=== PATIENT | female | born 1995 | race Caucasian/White ===

== ENCOUNTER → 2023-04-19 | Outpatient (CLI) | payer OTHER | LOC: M RAD 09:33 | PROVIDERS: ATTEND Midwife | DX: Z34.80 Encounter for supervision of other normal pregnancy, unspecified trimester (principal) ==

== ENCOUNTER 2023-09-06 04:29 | Inpatient (IN) | payer OTHER ==
[2023-09-06] VITALS (20 sets, daily range): BP systolic 110–175; BP diastolic 61–97; TEMP 97.8; O2SAT 97–100
[2023-09-06] MEDS ORDERED: MORPHINE 4 MG/ML 1ML VIAL As Ordered ONE (04:40)
[2023-09-06] MEDS: MORPHINE 4 MG/ML 1ML VIAL IV ONE (04:44)
[2023-09-06] MEDS ORDERED: CARBOPROST TROMETHAMINE 250 MCG/ML AMP IM PRN (05:15)
[2023-09-06] MEDS ORDERED: OXYTOCIN INJ 10UNITS/ML 1ML VIAL IM PRN (05:15)
[2023-09-06] MEDS: OXYTOCIN DRIP 30 UNITS in IV 1 EA IV PRN (05:23)
[2023-09-06] MEDS: METHYLERGONOVINE MALEATE 0.2MG/ML 1ML VIAL IM PRN (05:23)
[2023-09-06] MEDS: TRANEXAMIC ACID INJection 1,000 MG in NS 100 ML IV PRN (05:23)
[2023-09-06] MEDS ORDERED: OMEP40CA4 PO (05:29)
[2023-09-06] MEDS ORDERED: HOME MED LIST COMPLETE! XX SCH (05:30)
[2023-09-06 05:34] LABS: HEMOGLOBIN 10.3 g/dl (12.0-15.5); MEAN CORPUSCULAR HEMOGLOBIN 26.2 pg (27.0-33.0); MEAN CORPUSCULAR HGB CONC 32.2 g/dl (32.0-36.5); MEAN CORPUSCULAR VOLUME 81.4 fl (80.0-96.0); PLATELET COUNT, AUTOMATED 239 10^3/uL (150-450); RED BLOOD COUNT 3.93 10^6/uL (4.00-5.40); WHITE BLOOD COUNT 24.1 10^3/uL (4.0-10.0)
[2023-09-06 05:51] LABS: INR 1.1; PARTIAL THROMBOPLASTIN TIME 26.8 SECONDS (24.8-34.2); PROTHROMBIN TIME 13.9 SECONDS (12.5-14.5)
[2023-09-06] MEDS ORDERED: ceFAZolin 2 GM/D5W 50 ML IV BAG As Ordered ONE (05:57)
[2023-09-06] MEDS ORDERED: METHYLERGONOVINE MALEATE 0.2 MG TAB PO PRN (06:00)
[2023-09-06] MEDS: ceFAZolin SOD 2 GM in IV 1 EA IV ONE (06:10)
[2023-09-06 06:18] LABS: URIC ACID 10.1 MG/DL (3.1-7.8)
[2023-09-06 06:22] LABS: BILIRUBIN,TOTAL 0.4 MG/DL (0.3-1.2); CREATININE FOR GFR 1.17 MG/DL (0.55-1.30); GLOMERULAR FILTRATION RATE 59.5 (>60)
[2023-09-06] MEDS: ACETAMINOPHEN 500 MG TAB PO PRN (06:35)
[2023-09-06 09:20] LABS: TOTAL PROTEIN,RANDOM URINE 21.6 MG/DL (0.0-14.0)
[2023-09-06 09:25] LABS: CREATININE,RANDOM URINE 151.6 MG/DL
[2023-09-06] MEDS: IBUPROFEN 600MG TAB PO PRN (10:51)
[2023-09-06] MEDS: PRENATAL VITAMINS CHEWABLE TABLET PO SCH (10:52)
[2023-09-06 12:57] LABS: HEMATOCRIT 31.9 % (36.0-47.0); HEMOGLOBIN 10.3 g/dl (12.0-15.5)
[2023-09-06 13:16] LABS: URIC ACID 9.2 MG/DL (3.1-7.8)
[2023-09-06 13:18] LABS: LDH LACTATE DEHYDROGENASE 262 U/L (120-246)
[2023-09-06 13:20] LABS: ALT/SGPT 15 U/L (7.0-40); AST/SGOT 50 U/L (<34); BILIRUBIN,TOTAL 0.3 MG/DL (0.3-1.2); CREATININE FOR GFR 1.07 MG/DL (0.55-1.30); GLOMERULAR FILTRATION RATE > 60.0 (>60)
[2023-09-06] MEDS: DIBUCAINE 1% OINTMENT 30GM TOP PRN (21:50)
[2023-09-07] VITALS (10 sets, daily range): BP systolic 101–134; BP diastolic 62–88; TEMP 97.8–98.2; O2SAT 97–100
[2023-09-07] MEDS: DOCUSATE SODIUM 100MG CAPSULE PO PRN (04:01)
[2023-09-07] MEDS: SIMETHICONE 80MG CHEW TAB PO PRN (04:02)
[2023-09-07 06:30] LABS: MEAN CORPUSCULAR HEMOGLOBIN 27.1 pg (27.0-33.0); MEAN CORPUSCULAR HGB CONC 32.9 g/dl (32.0-36.5); MEAN CORPUSCULAR VOLUME 82.2 fl (80.0-96.0); PLATELET COUNT, AUTOMATED 217 10^3/uL (150-450); RED BLOOD COUNT 3.03 10^6/uL (4.00-5.40); WHITE BLOOD COUNT 11.7 10^3/uL (4.0-10.0)
[2023-09-07 06:41] LABS: HEMATOCRIT 24.9 % (36.0-47.0); HEMOGLOBIN 8.2 g/dl (12.0-15.5)
[2023-09-07 06:50] LABS: URIC ACID 7.9 MG/DL (3.1-7.8)
[2023-09-07 06:52] LABS: LDH LACTATE DEHYDROGENASE 209 U/L (120-246)
[2023-09-07 06:53] LABS: ALT/SGPT 17 U/L (7.0-40); AST/SGOT 53 U/L (<34); BILIRUBIN,TOTAL < 0.2 MG/DL (0.3-1.2); CREATININE FOR GFR 1.06 MG/DL (0.55-1.30); GLOMERULAR FILTRATION RATE > 60.0 (>60)
[2023-09-07] MEDS: RHO(D) IMMUNE GLOBULIN/MALTOSE 500MCG(2500IU)/2.2ML VIAL (WINRHO) IM SCH (07:06)
[2023-09-07] MEDS: IBUPROFEN 800 MG TAB PO PRN (08:35)
[2023-09-07 19:52] LABS: HEMATOCRIT 31.2 % (36.0-47.0); MEAN CORPUSCULAR HGB CONC 32.7 g/dl (32.0-36.5); MEAN CORPUSCULAR VOLUME 82.5 fl (80.0-96.0); PLATELET COUNT, AUTOMATED 219 10^3/uL (150-450); RED BLOOD COUNT 3.78 10^6/uL (4.00-5.40); WHITE BLOOD COUNT 11.3 10^3/uL (4.0-10.0)
[2023-09-07 19:59] LABS: HEMOGLOBIN 10.2 g/dl (12.0-15.5)
[2023-09-07] MEDS ORDERED: DIBU28OI2 TOP (20:39)
[2023-09-07] MEDS ORDERED: PROC2.5C TOP (20:41)
[2023-09-08] MEDS ORDERED: MEASLES,MUMPS,RUBELLA VACCINE INJ (MMR-II) SC.IMMUN ONE (09:00)
== END 2023-09-07 21:17 | disposition home or self-care (01) | DRG 769 ==
LOC: M LDI 04:29 → M OBS 16:01
PROVIDERS: ADMIT Obstetrics & Gynecology; ATTEND Obstetrics & Gynecology
PROC: 0KQM0ZZ Repair Perineum Muscle, Open Approach (ICD-10-PCS; principal; 2023-09-06)
PROC: 30233N1 Transfusion of Nonautologous Red Blood Cells into Peripheral Vein, Percutaneous Approach (ICD-10-PCS; 2023-09-07)
DX: O72.1 Other immediate postpartum hemorrhage (principal); O34.211 Maternal care for low transverse scar from previous cesarean delivery; O70.1 Second degree perineal laceration during delivery; O14.94 Unspecified pre-eclampsia, complicating childbirth; Z3A.39 39 weeks gestation of pregnancy

== ENCOUNTER → 2024-05-04 | Outpatient (CLI) | payer OTHER ==
[~2024-05-04] MED LIST: DIBU28OI2 TOP; OMEP40CA4 PO; PROC2.5C TOP
== END ==
LOC: M RAD 13:05
PROVIDERS: ATTEND Midwife
DX: Z34.81 Encounter for supervision of other normal pregnancy, first trimester (principal)

== ENCOUNTER → 2024-10-09 | Outpatient (CLI) | payer OTHER ==
[2024-10-09 15:42] LABS: PLATELET COUNT, AUTOMATED 246 10^3/uL (150-450)
== END ==
LOC: M LAB 14:11
PROVIDERS: ATTEND Midwife
DX: Z34.80 Encounter for supervision of other normal pregnancy, unspecified trimester (principal)

== ENCOUNTER → 2024-10-13 | Outpatient (CLI) | payer OTHER | LOC: M LAB 08:11 | PROVIDERS: ATTEND Midwife | DX: Z36.89 Encounter for other specified antenatal screening (principal) ==